=== PATIENT | female | born 1985 | race Caucasian/White ===

== ENCOUNTER 2016-11-05 07:13 | Emergency (ER) | payer OTHER ==
[2016-11-05] MEDS ORDERED: AZITHROMYCIN 250 MG TAB PO ONE (07:33)
--- NOTE | 2016-11-05 07:37 | UCPHY ---
H & P Patient Type: New Time Seen by Provider: 11/05/16 07:33 HPI/ROS: CHIEF COMPLAINT: Sore throat HISTORY OF PRESENT ILLNESS: Patient is a 31-year-old female who comes to the Urgent Care complaining of a sore throat. [place] overnight last night. She has not had a fever. Mild headache, no neck pain. No rash. She is currently breast-feeding. No nausea vomiting. No symptoms. Her sister and brother-in- law and her family are visiting her. 3 of them were diagnosed yesterday with strep throat. REVIEW OF SYSTEMS: Constitutional: denies: chills, fever, recent illness, recent injury EENTM: See HPI Respiratory: denies: cough, shortness of breath Cardiac: denies: chest pain, irregular heart rate, lightheadedness, palpitations Gastrointestinal/Abdominal: denies: abdominal pain, diarrhea, nausea, vomiting, blood streaked stools Genitourinary: denies: dysuria, frequency, hematuria, pain Musculoskeletal: denies: joint pain, muscle pain Skin: denies: lesions, rash, jaundice, bruising Neurological: denies: headache, numbness, paresthesia, tingling, dizziness, weakness Hematologic/Lymphatic: denies: blood clots, easy bleeding, easy bruising Immunologic/allergic: denies: HIV/AIDS, transplant EXAM: GENERAL: Well-appearing, well-nourished and in no acute distress. HEAD: Atraumatic, normocephalic. EYES: Pupils equal round and reactive to light, extraocular movements intact, sclera anicteric, conjunctiva are normal. ENT: TMs normal, nares patent, oropharynx with mild erythema, no exudate . Moist mucous membranes. NECK: Normal range of motion, supple without lymphadenopathy or JVD. LUNGS: Breath sounds clear to auscultation bilaterally and equal. No wheezes rales or rhonchi. HEART: Regular rate and rhythm without murmurs, rubs or gallops. ABDOMEN: Soft, nontender, normoactive bowel sounds. No guarding, no rebound. No masses appreciated. BACK: No CVA tenderness, no spinal tenderness, step-offs or deformities EXTREMITIES: Normal range of motion, no pitting or edema. No clubbing or cyanosis. NEUROLOGICAL: Cranial nerves II through XII grossly intact. Normal speech, normal gait. 5/5 strength, normal movement in all extremities, normal sensation PSYCH: Normal mood, normal affect. SKIN: Warm, dry, normal turgor, no visible rashes or lesions. Source: Patient Exam Limitations: No limitations - Medical/Surgical History Hx Asthma: No Hx Chronic Respiratory Disease: No Hx Diabetes: No Hx Cardiac Disease: No Hx Renal Disease: No Hx Cirrhosis: No Hx Alcoholism: No - Family History Significant Family History: No pertinent family hx - Social History Smoking Status: Never smoked Alcohol Use: Sober Drug Use: None Constitutional: Initial Vital Signs Temperature (C) 36.7 C 11/05/16 07:20 Heart Rate 60 11/05/16 07:20 Respiratory Rate 16 11/05/16 07:20 Blood Pressure 107/56 L 11/05/16 07:20 O2 Sat (%) 95 11/05/16 07:20 O2 Delivery Mode Room Air Allergies/Adverse Reactions: No Known Allergies Allergy (Unverified 11/05/16 07:39) Home Medications: Medication Instructions Recorded AZITHROMYCIN [Z-PACK] 250 mg PO DAILY #4 tab 11/05/16 Calcium 11/05/16 Pnv 29-1 Tablet 11/05/16 Medical Decision Making ED Course/Re-evaluation: The patient has been exposed to several people with strep throat. She is beginning to have symptoms. I will treat her with antibiotics. I offered steroids but she declines. She is currently breast-feeding. We will send cultures. She declines further workup or testing at this time is happy with this plan. Differential Diagnosis: Partial list of the Differential diagnosis considered include but were not limited to; strep throat, pharyngitis, abscess upper respiratory tract infection, bronchitis, pneumonia, meningitis. I discussed these differential diagnoses and the plan with the patient as well as the usual and expected course. The patient understands that this diagnosis is provisional. Been exposed to strep throat and is now having symptoms. I will start her on azithromycin. We will send a culture. We discussed steroids and she declines. She is happy with this plan and declines any further workup or testing at this time. - Data Points Laboratory Results: 11/05/16 11/05/16 Unknown 07:40 Group A Strep Screen NEGATIVE (NEGATIVE) Group A Strep DNA Pending Departure - Departure Disposition: Home, Routine, Self-Care Clinical Impression: Strep throat Condition: Fair Instructions: Strep Throat (ED) Referrals: Zenia Jeffery FNP [Primary Care Provider] - As per Instructions Prescriptions: AZITHROMYCIN [Z-PACK] 250 mg PO DAILY #4 tab - PQRS PQRS Measurement: Not applicable
[2016-11-05 07:44] VITALS: BP 107/56; PULSE 60; RESP 16; TEMP 98.1; O2SAT 95
== END 2016-11-05 07:45 | disposition home or self-care (01) ==
LOC: CED 07:13
DX: R07.0 Pain in throat (principal); Z20.818 Contact with and (suspected) exposure to other bacterial communicable diseases
CPT/HCPCS: 87880-PO; 99204-PO; G0463-PO

== ENCOUNTER 2016-11-06 07:21 | Emergency (ER) | payer OTHER ==
--- NOTE | 2016-11-06 07:33 | UCPHY ---
H & P Time Seen by Provider: 11/06/16 07:32 Patient Type: Established HPI/ROS: CHIEF COMPLAINT: Fever, cough, sore throat, flu-like illness HISTORY OF PRESENT ILLNESS: Patient presents to the urgent care with a 1 day history of fever, cough, sore throat and a flu-like illness. The patient was seen urgent care yesterday with complaints of fever and sore throat. She had a strep test done which was negative but was treated empirically with antibiotics. Over the past 24 hours she has developed more classic flu-like symptoms prompting her visit to the urgent care today. Patient reports that she did receive a flu shot this year. She is currently breast-feeding a healthy 7-month-old child at home. The patient denies significant past medical history such as asthma or diabetes. The patient does not smoke. REVIEW OF SYSTEMS: A comprehensive 10 point review of systems is otherwise negative aside from elements mentioned in the history of present illness. Past Medical/Surgical History: Past medical history: Noncontributory, breast-feeding 7-month-old home Smoking Status: Never smoked Physical Exam: General Appearance: Alert, no distress Eyes: Pupils equal and round no pallor or injection ENT, Mouth: Mild pharyngeal erythema Respiratory: Scant expiratory wheezing Cardiovascular: Regular rate and rhythm Gastrointestinal: Abdomen is soft and nontender, no masses, bowel sounds normal Neurological: A&O, normal motor function, normal sensory exam, normal cranial nerves Skin: Warm and dry, no rashes Musculoskeletal: Neck is supple nontender Extremities: symmetrical, full range of motion Constitutional: Initial Vital Signs Temperature (C) 37.7 C 11/06/16 07:39 Heart Rate 78 11/06/16 07:39 Respiratory Rate 16 11/06/16 07:39 Blood Pressure 113/67 11/06/16 07:39 O2 Sat (%) 94 11/06/16 07:39 O2 Delivery Mode Room Air Allergies/Adverse Reactions: No Known Allergies Allergy (Verified 11/06/16 07:41) Home Medications: Medication Instructions Recorded Albuterol [Ventolin Hfa Inhaler] 2 puffs IH QID PRN #1 mdi 11/06/16 Oseltamivir Phosphate [Tamiflu] 75 mg PO BID #10 cap 11/06/16 11/06/16 Medical Decision Making ED Course/Re-evaluation: The patient presents to the ED with a flu-like illness which is confirmed on her influenza a testing performed in the urgent care. The patient does have scant expiratory wheezing but no clinical evidence of pneumonia. The patient will be given a prescription for albuterol in addition to Tamiflu. The patient is breast-feeding a healthy 7-month-old infant at home. We discussed that prophylactic use of Tamiflu in her is typically not recommended above age 3 months for a healthy child. 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 Patient will be discharged from the urgent care with customary aftercare instructions and return precautions. Differential Diagnosis: Differential diagnosis considered includes influenza, streptococcal pharyngitis , viral syndrome, pneumonia - Data Points Laboratory Results: 11/06/16 07:30 Influenza Typ A,B (DFA) POSITIVE FOR FLU A H (NEGATIVE) Departure - Departure Disposition: Home, Routine, Self-Care Clinical Impression: Influenza A Condition: Good Instructions: Influenza (ED) Additional Instructions: 1. Please take Tamiflu as directed for influenza. 2. Take Ibuprofen or Motrin 600 mg by mouth three times a day. 3. Use albuterol up to every 2 hours as needed for cough. 4. Please return to the ED or urgent care difficulty breathing, vomiting, worsening symptoms or other concerns. Referrals: Zenia Jeffery FNP [Primary Care Provider] - As per Instructions Prescriptions: Albuterol [Ventolin Hfa Inhaler] 2 puffs IH QID PRN #1 mdi PRN Reason: for shortness of breath Oseltamivir Phosphate [Tamiflu] 75 mg PO BID #10 cap - PQRS PQRS Measurement: Not applicable
[2016-11-06 07:41] VITALS: RESP 16; TEMP 99.9
[2016-11-06] MEDS ORDERED: OSELTAMIVIR PHOSPHATE 75 MG CAP PO ONE (07:50)
[2016-11-06 07:57] VITALS: BP 122/66; PULSE 81; O2SAT 96
[2016-11-06] MEDS ORDERED: OSELTAMIVIR PHOSPHATE 75 MG CAP PO SCH (09:00)
== END 2016-11-06 07:56 | disposition home or self-care (01) ==
LOC: CED 07:21
DX: J10.1 Influenza due to other identified influenza virus with other respiratory manifestations (principal)
CPT/HCPCS: 87400-PO; 99214-PO; G0463-PO